=== PATIENT | male | born 2000 | race Caucasian/White ===

== ENCOUNTER 2024-01-24 07:56 | Outpatient (OUT) | payer OTHER, SELFPAY ==
--- NOTE | 2024-01-24 | XR_ITS ---
[address] [address] Patient Name: RAUDEL AGUERO MRN: [id number] date: 2000 Sex: M Assigned Patient Location: Current Patient Location: Accession/Order Number: [id number] Exam Date: 01/24/2024 08:01 Report Date: 01/25/2024 09:19 At the request of: JENNIFER VALERIO Procedure: XR elbow RT min 3V PROCEDURE: XR elbow RT min 3V HISTORY: RIGHT ELBOW PAIN COMPARISON: None. FINDINGS: BONES:Questionable 11 x 5 mm opacity cephalad to the olecranon process which may represent a fracture fragment. Unremarkable radial head and humeral condyles. SOFT TISSUES:Prominent subcutaneous edema medial to the elbow and distal humerus. EFFUSION:Small to moderate joint effusion. OTHER: Negative. XR/XR elbow RT min 3V IMPRESSION: 1. Fracture fragment, possibly from the olecranon process, is suspected. This could also represent summation artifact. 2. Moderate joint effusion. 3. Medial soft tissue swelling/edema. 4. Consider CT imaging of the elbow to confirm or exclude fracture. Alternatively MRI of the elbow could be performed. Electronically authenticated by: JENNIFER PALACIOS Date: 01/25/2024 09:19
== END 2024-01-24 07:57 | disposition home or self-care (01) ==
LOC: EC 07:59
PROVIDERS: Visit Provider Orthopaedic Surgery
DX: M25.521 Pain in right elbow (principal); M25.421 Effusion, right elbow
CPT/HCPCS: 73080